=== PATIENT | female | born 1970 | race Caucasian/White ===

== ENCOUNTER 2020-10-20 01:05 | Emergency (ER) | payer MEDICARE, OTHER ==
[~2020-10-20 01:05] MED LIST: CEFUROXIME500 MG PO; LODINE CAP 300300 MG PO; ZOFRAN ODT 4 MG4 MG PO
[2020-10-20] MEDS ORDERED: OMNICEF 300 MG300 MG PO (01:48)
[2020-10-20] MEDS ORDERED: ZOFRAN4 MG PO (01:48)
[2020-10-20] MEDS ORDERED: DIFLUCAN150 MG PO (01:48)
== END 2020-10-20 02:33 | disposition home or self-care (01) ==
LOC: ER1 01:05
DX: B37.3 Candidiasis of vulva and vagina (principal); N39.0 Urinary tract infection, site not specified; I10 Essential (primary) hypertension; F17.210 Nicotine dependence, cigarettes, uncomplicated
CPT/HCPCS: 81001; 87077; 87086; 87186; 99283

== ENCOUNTER 2020-12-14 14:09 | Emergency (ER) | payer MEDICARE, OTHER ==
[~2020-12-14 14:09] MED LIST changes: +DIFLUCAN150 MG PO; +OMNICEF 300 MG300 MG PO; +ZOFRAN4 MG PO
== END 2020-12-14 16:00 | disposition left against medical advice (07) ==
LOC: ER1 14:09
DX: Z53.21 Procedure and treatment not carried out due to patient leaving prior to being seen by health care provider (principal)

== ENCOUNTER 2022-01-05 01:55 | Emergency (ER) | payer MEDICARE, OTHER ==
[2022-01-05] MEDS ORDERED: PYRIDIUM200 MG PO (03:41)
[2022-01-05] MEDS ORDERED: DIFLUCAN150 MG PO (03:41)
[2022-01-05] MEDS ORDERED: MACROBID 100 M100 MG PO (03:41)
== END 2022-01-05 03:50 | disposition home or self-care (01) ==
LOC: ER1 01:55
DX: R30.0 Dysuria (principal); R21 Rash and other nonspecific skin eruption; R50.9 Fever, unspecified; R11.0 Nausea; F17.210 Nicotine dependence, cigarettes, uncomplicated; Z88.6 Allergy status to analgesic agent
CPT/HCPCS: 81001; 99283